=== PATIENT | female | born 1985 | race American Indian/Alaskan Native ===

== ENCOUNTER 2018-09-26 03:52 | Emergency (ER) | payer SELFPAY ==
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
[2018-09-26] MEDS ORDERED: TORADOL IM ONE ×2 (05:00→05:09)
[2018-09-26] MEDS ORDERED: TORADOL ONE (05:04)
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
[2018-09-26 20:12] VITALS: BP 131/87
== END 2018-09-26 06:45 | disposition home or self-care (01) ==
LOC: ED 03:52
DX: S29.012A Strain of muscle and tendon of back wall of thorax, initial encounter (principal); I10 Essential (primary) hypertension; F17.200 Nicotine dependence, unspecified, uncomplicated; Z88.0 Allergy status to penicillin; Z91.018 Allergy to other foods; V89.2XXA Person injured in unspecified motor-vehicle accident, traffic, initial encounter; Y93.89 Activity, other specified; Y92.488 Other paved roadways as the place of occurrence of the external cause; Y99.8 Other external cause status
CPT/HCPCS: 71046; 72070; 72100; 96372; 99283; J1885